=== PATIENT | male | born 1970 | race American Indian/Alaskan Native ===

== ENCOUNTER 2017-08-24 12:33 | Emergency (ER) | payer SELFPAY ==
[2017-08-24 12:56] VITALS: BP 157/106
[2017-08-24 13:21] LABS: Basophils % (Auto) 0.7 % (0.0-1.8); Eosinophils % (Auto) 3.4 % (0.0-4.3); Hematocrit 54.3 % (35.5-45.6); Hemoglobin 18.1 gm/dl (11.8-15.2); Mean Corpuscular HGB Conc 33 % (32-34); Mean Corpuscular Hemoglobin 31 pg (28-32); Mean Corpuscular Volume 94 fl (84-94); Red Blood Count 5.81 M/mm3 (3.65-5.03); Red Cell Distribution Width 15.2 % (13.2-15.2); White Blood Count 6.9 K/mm3 (4.5-11.0)
[2017-08-24 13:41] LABS: Anion Gap 15 mmol/L; BUN/Creatinine Ratio 18.75; Blood Urea Nitrogen 15 mg/dL (9-20); Calcium 8.9 mg/dL (8.4-10.2); Carbon Dioxide 30 mmol/L (22-30); Chloride 97.9 mmol/L (98-107); Glucose 89 mg/dL (75-100); Potassium 4.2 mmol/L (3.6-5.0); Sodium 139 mmol/L (137-145)
[2017-08-24 14:04] LABS: Platelet Count 159 K/mm3 (140-440)
--- NOTE | 2017-08-24 15:03 | Emergency Department Report ---
ED Chest Pain HPI - General Chief Complaint: Chest Pain Stated Complaint: CP Time Seen by Provider: 08/24/17 14:53 Source: patient Mode of arrival: Ambulatory Limitations: No Limitations - History of Present Illness Initial Comments: 46 years old male history of high blood pressure coming today with chest pain substernal sharp in nature, does not radiate. Denied any shortness of breath no nausea no vomiting he stated that he took Zantac and it did help his pain. MD Complaint: chest pain -: Gradual Onset: during rest Pain Location: substernal Severity scale (0 -10): 2 Quality: sharp Consistency: intermittent Worsens With: movement - Related Data Allergies Allergy/AdvReac Type Severity Reaction Status Date / Time No Known Allergies Allergy Unverified 08/24/17 12:51 Heart Score - HEART Score History: Slightly suspicious EKG: Normal Age: 45-65 Risk factors: 1-2 risk factors Troponin: < normal limit HEART Score: 2 - Critical Actions Critical Actions: 0-3 pts:0.9-1.7%risk of adverse cardiac event.Candidate for discharge ED Review of Systems ROS: Stated complaint: CP Other details as noted in HPI Comment: All other systems reviewed and negative Constitutional: denies: chills, fever ENT: denies: throat pain Respiratory: denies: cough, orthopnea, shortness of breath Cardiovascular: chest pain. denies: palpitations, dyspnea on exertion Gastrointestinal: abdominal pain. denies: nausea, vomiting Musculoskeletal: denies: back pain Neurological: denies: headache, weakness ED Past Medical Hx - Past Medical History Hx Hypertension: Yes (no meds today) - Surgical History Past Surgical History?: No - Social History Smoking Status: Current Every Day Smoker Substance Use Type: None ED Physical Exam - General Limitations: No Limitations General appearance: alert, in no apparent distress - Head Head exam: Present: atraumatic - Eye Eye exam: Present: normal appearance - ENT ENT exam: Present: normal exam - Neck Neck exam: Present: normal inspection. Absent: tenderness - Respiratory Respiratory exam: Present: normal lung sounds bilaterally, chest wall tenderness. Absent: respiratory distress, wheezes, rales, rhonchi, accessory muscle use, decreased breath sounds, prolonged expiratory - Cardiovascular Cardiovascular Exam: Present: regular rate, normal rhythm, normal heart sounds. Absent: systolic murmur, diastolic murmur - GI/Abdominal GI/Abdominal exam: Present: soft - Extremities Exam Extremities exam: Present: normal inspection, full ROM, normal capillary refill - Back Exam Back exam: Present: normal inspection. Absent: CVA tenderness (R), CVA tenderness (L) - Neurological Exam Neurological exam: Present: alert, oriented X3, CN II-XII intact, normal gait - Skin Skin exam: Present: warm, intact, normal color ED Course Vital Signs 08/24/17 08/24/17 12:51 14:42 Temperature 97.8 F Pulse Rate 91 H Respiratory 20 16 Rate Blood Pressure 157/106 O2 Sat by Pulse 96 97 Oximetry - Reevaluation(s) Reevaluation #1: 08/24/17 15:02 Patient stated that his symptoms completely resolved after the Zantac and using a heat pad. ED Medical Decision Making - Lab Data Result diagrams: 08/24/17 13:05 08/24/17 13:05 - EKG Data -: EKG Interpreted by Hi EKG shows normal: sinus rhythm Rate: normal - EKG Data Interpretation: no acute changes - Radiology Data Radiology results: image reviewed Chest x-ray with no acute abnormalities - Medical Decision Making Patient chest pain is atypical, reproducible chest tenderness. Pain improved with Zantac and heating pads. Since patient chest pain is completely resolved I will discharge patient home to follow up with his primary care physician for further workup.. Critical care attestation.: If time is entered above; I have spent that time in minutes in the direct care of this critically ill patient, excluding procedure time. ED Disposition Clinical Impression: Chest pain, Costochondritis, acute Disposition: - TO HOME OR SELFCARE Is pt being admited?: No Condition: Stable Instructions: Chest Pain (ED), Costochondritis (ED) Referrals: PRIMARY CARE, [Primary Care Provider] - 3-5 Days
--- NOTE | 2017-08-25 07:51 | XRay Report ---
AP CHEST: HISTORY: chest pain No recent comparison. Mild bilateral pulmonary venous congestion is appreciated. Heart size is borderline. The lungs are clear. No evidence for pneumonia, CHF or pneumothorax. The bony structures are within normal limits. IMPRESSION: Mild pulmonary venous congestion.
== END 2017-08-24 15:29 | disposition home or self-care (01) ==
LOC: ED 12:33
DX: M94.0 Chondrocostal junction syndrome [Tietze] (principal); I10 Essential (primary) hypertension; F17.210 Nicotine dependence, cigarettes, uncomplicated
CPT/HCPCS: 36415; 71010; 80048; 84484; 85025; 93005; 93010; 99284

== ENCOUNTER 2018-12-28 11:25 | Day surgery (SDC) | payer BC | END 2018-12-28 11:26 | disposition home or self-care (01) | LOC: GIO 11:25 ==